=== PATIENT | male | born 1965 ===

== ENCOUNTER 2017-02-25 18:36 | Emergency (ER) | payer SELFPAY ==
[2017-02-25 18:47] VITALS: O2SAT 99
[2017-02-25] MEDS ORDERED: Sodium Chloride 0.9% 1,000 ML IV ONE (19:30)
[2017-02-25] MEDS ORDERED: Sodium Chloride 0.9% 1,000 ML ONE (19:47)
--- NOTE | 2017-02-25 19:51 | C.PDOC ---
History Of Present Illness 51-year-old male, denies significant PMHx, presents to the emergency department with complaints of thoracic, lumbar and paraspinal back pain for the past five days. Pain worsens with movement and lifting heavy objects. States today his pain radiating to chest and epigastric area, resulting in him coming to ED for evaluation. Denies any nausea/vomiting, diarrhea, fevers, cough. He complains of mild shortness of breath when lifting heavy boxes at work. Time Seen by Provider: 02/25/17 19:02 Chief Complaint (Nursing): Chest Pain History Per: Patient History/Exam Limitations: no limitations Past Medical History Reviewed: Historical Data, Nursing Documentation, Vital Signs Vital Signs: Last Vital Signs Temp 97.9 F 02/25/17 18:42 Pulse 66 02/25/17 18:42 Resp 20 02/25/17 18:42 BP 146/90 02/25/17 18:42 Pulse Ox 99 02/25/17 20:03 Family History: States: No Known Family Hx - Social History Hx Alcohol Use: Yes Hx Substance Use: No - Immunization History Hx Tetanus Toxoid Vaccination: No Hx Influenza Vaccination: No Hx Pneumococcal Vaccination: No Review Of Systems Except As Marked, All Systems Reviewed And Found Negative. Constitutional: Negative for: Fever, Chills Physical Exam - Physical Exam Appears: Non-toxic, No Acute Distress Skin: Warm, Dry, No Rash Head: Atraumatic, Normacephalic Eye(s): bilateral: Normal Inspection, PERRL Nose: Normal Oral Mucosa: Moist Lips: Normal Appearing Neck: Normal ROM Cardiovascular: Rhythm Regular, No Murmur Respiratory: Normal Breath Sounds, No Accessory Muscle Use Gastrointestinal/Abdominal: Soft, No Tenderness Back: Paraspinal Tenderness (thoracic, lumbar) Extremity: Normal ROM Neurological/Psych: Oriented x3, Normal Speech ED Course And Treatment - Laboratory Results Result Diagrams: 02/25/17 19:55 02/25/17 20:59 ECG: Interpreted By Me, Viewed By Me ECG Rhythm: Sinus Rhythm ECG Interpretation: No Acute Changes Rate From EC O2 Sat by Pulse Oximetry: 99 (on RA) Pulse Ox Interpretation: Normal Progress Note: Bloodwork, CXR ordered and reviewed. Patient treated with IVFs. Pending D-Dimer Disposition Counseled Patient/Family Regarding: Studies Performed, Diagnosis, Need For Followup, Rx Given - Disposition Referrals: [facility] [Outside] Disposition: HOME/ ROUTINE Disposition Time: 22:15 Condition: STABLE Additional Instructions: SEGUIMIENTO CON WILLIAMSON MDICO / BRADFORDA EN 1-2 REYES USE MEDICAMENTOS SEGN SEA NECESARIO PARA DOLOR REGRESE AL JEAN DE EMERGENCIA SI LOS SNTOMAS EMPEORAN Prescriptions: Cyclobenzaprine [Cyclobenzaprine HCl] 10 mg PO BID PRN #15 tab PRN Reason: Muscle Spasm Naproxen 375 mg PO BID PRN #20 tablet PRN Reason: pain Instructions: Back Pain (ED) Forms: Personal [employer] (French) Print Language: SAMI - POA Present On Arrival: None - Clinical Impression Clinical Impression: Back pain, Muscle spasm - Scribe Statement The provider has reviewed the documentation as recorded by the Scribe (Teena Em) All medical record entries made by the Scribe were at my direction and personally dictated by me. I have reviewed the chart and agree that the record accurately reflects my personal performance of the history, physical exam, medical decision making, and the department course for this patient. I have also personally directed, reviewed, and agree with the discharge instructions and disposition.
[2017-02-25 19:59] LABS: BASO # 0.1 K/uL (0.0-0.2); BASO % 0.6 % (0.0-2.0); EOS # 0.4 K/uL (0.0-0.7); EOS % 4.3 % (0.0-4.0); HEMOGLOBIN 14.4 g/dL (12.0-18.0); LYMPH # 2.6 K/uL (1.0-4.3); LYMPH % 26.9 % (20.0-40.0); MEAN CELL VOLUME 85.3 fL (80.0-94.0); MEAN CORPUSCULAR HEMOGLOBIN 29.1 pg (27.0-31.0); MEAN CORPUSCULAR HGB CONC 34.2 g/dL (33.0-37.0); MEAN PLATELET VOLUME 8.9 fL (7.2-11.7); MONO # 0.7 K/uL (0.0-0.8); MONO % 6.8 % (0.0-10.0); NEUT # 5.9 K/uL (1.8-7.0); NEUT % 61.4 % (50.0-75.0); NRBC % 0.1 % (0.0-2.0); RBC 4.96 Mil/uL (4.40-5.90); RED CELL DISTRIBUTION WIDTH 13.3 % (11.5-14.5); WHITE BLOOD COUNT 9.7 K/uL (4.8-10.8)
[2017-02-25 20:20] LABS: CALCIUM 8.5 mg/dl (8.6-10.4); GFR AFRICAN-AMERICAN > 60; GFR NON-AFRICAN AMERICAN > 60
[2017-02-25 20:22] LABS: ALB/GLOB RATIO 1.2 (1.0-2.1); ALBUMIN 4.6 g/dL (3.5-5.0); ALT/SGPT 33 U/L (21-72); AST/SGOT 65 U/L (17-59); BLOOD UREA NITROGEN 14 mg/dL (9-20)
[2017-02-25 20:30] LABS: CK-MB 6.41 ng/mL (0.0-3.38)
[2017-02-25 21:23] LABS: BLOOD UREA NITROGEN 12 mg/dL (9-20); CALCIUM 8.1 mg/dl (8.6-10.4); GFR AFRICAN-AMERICAN > 60; GFR NON-AFRICAN AMERICAN > 60
[2017-02-25 22:21] VITALS: BP 125/76; PULSE 74; RESP 18; TEMP 98.1
--- NOTE | 2017-02-26 09:46 | RAD ---
Chest x-ray two views History: Chest and back pain. Comparison: None available. Findings: Mild venous congestion. Heart size within normal limits. Degenerative changes in the spine and shoulders. Impression: Mild venous congestion.
--- NOTE | 2017-03-03 00:36 | CARD ---
APPROVED REPORT EKG Measurement Heart [id number] ID [id number] <Conclusion> Normal sinus rhythm with sinus arrhythmia Normal ECG
== END 2017-02-25 22:29 | disposition home or self-care (01) ==
LOC: C.ER 18:36
DX: M54.6 Pain in thoracic spine (principal); M62.838 Other muscle spasm
CPT/HCPCS: 36415; 71046; 80048; 80053; 82550; 82553; 84484; 85025; 85378; 96360; 99285; J7040